=== PATIENT | female | born 1985 ===

== ENCOUNTER → 2023-01-14 | Outpatient (REF) | payer SELFPAY ==
[2023-01-14 17:45] LABS: BACTERIA, URINE AUTO 1+ (NEGATIVE); MUCUS, URINE SMALL (NEGATIVE); RBC, URINE AUTO 1 /HPF (0-3); SQUAMOUS EPITHELIAL CELL UR AU 0 /HPF (0-6); WBC, URINE AUTO 18 /HPF (0-3)
== END ==
LOC: M LAB REF 16:59
PROVIDERS: ATTEND Pediatrics
DX: R30.0 Dysuria (principal)